=== PATIENT | male | born 1945 | race Caucasian/White ===

== ENCOUNTER 2019-07-03 13:59 | Outpatient (CLI) | payer MEDICARE, SELFPAY ==
--- NOTE | ~2019-07-03 | CT_ITS ---
EXAMINATION: CT abdomen pelvis w con DATE: 07/03/2019 15:01 INDICATION: Abdominal pain TECHNIQUE: Computed tomography (CT) of the abdomen and pelvis was performed with 100 cc Omnipaque 350 intravenous contrast. Automated exposure control and iterative reconstruction technique were employe d. Exam dose: 652.67 mGy-cm total exam DLP. COMPARISON: None. FINDINGS: Approximately 3.5 mm pleura-based nodule in the middle lobe (series 4 image 5). No infiltrate or consolidation or suspicious mass lesion is noted in the lung bases. Normal heart size. No pericardial or pleural effusion. There are calcified hepatic and splenic granulomas consistent with old granulomatous disease. The julien er, gallbladder, bile ducts, pancreas, pancreatic duct and spleen are otherwise unremarkable. Normal morphology of the adrenal glands. 3.2 and 3.9 cm left renal anterior exophytic cysts. The kidneys are otherwise unremarkable. No urinar y tract calculus or hydroureteronephrosis. The urinary bladder is unremarkable. There is moderate pro state enlargement and minimal calcification. There is abdominal aortic calcification and prominent calcification at the origins of the renal arter ies especially. There is a fat containing right inguinal hernia. Minimal sigmoid diverticulosis; no evidence of diverticulitis. No bowel obstruction or intraperitone al free air. Status post posterior and interbody spinal fusion at L3-5. There are degenerative disc disease at L2-3 and L5-S1. Degenerative spurring in the lower thoracic s pine. IMPRESSION: Left renal cysts Minimal sigmoid diverticulosis Reviewed, dictated and finalized at [facility]. Reviewed, dictated and finalized at [facility].
[2019-07-03 14:53] LABS: Estimated Glomerular Filt Rate > 60
== END 2019-07-03 14:00 | disposition home or self-care (01) ==
PROVIDERS: PCP Internal Medicine Gastroenterology; Visit Provider Internal Medicine Gastroenterology
DX: R10.9 Unspecified abdominal pain (principal); N28.1 Cyst of kidney, acquired; K57.90 Diverticulosis of intestine, part unspecified, without perforation or abscess without bleeding
CPT/HCPCS: 36415; 74177; Q9967

== ENCOUNTER 2019-07-08 00:29 | Outpatient (CLI) | payer MEDICARE, SELFPAY ==
[2019-07-08 16:10] LABS: SARS-CoV-2 RNA PCR Negative
== END 2019-07-08 00:30 | disposition home or self-care (01) ==
LOC: ANHCOVIDDT 00:29
PROVIDERS: Visit Provider Internal Medicine Gastroenterology
DX: Z01.818 Encounter for other preprocedural examination (principal); Z11.59 Encounter for screening for other viral diseases; R10.13 Epigastric pain
CPT/HCPCS: 87635; C9803; U0003

== ENCOUNTER 2019-07-09 01:00 | Day surgery (SDC) | payer MEDICARE, SELFPAY ==
[2019-07-04 13:27] VITALS: BMI 27.2
[2019-07-09 07:28] VITALS: BP 138/88; PULSE 80; RESP 16; TEMP 36.6; O2SAT 99
[2019-07-09] MEDS: LACTATED RINGERS 1,000 ML 150 ML IV CONT (07:38)
--- NOTE | 2019-07-09 07:43 | PM.HPGS ---
History of Present Illness History of Present Illness Consent: Risks, benefits, and alternatives have been discussed and questions answered. Patient agrees to proceed with procedure. Chief complaint: Epigastric Pain Narrative: Mani Walton is a 73 year old male with a 2-3 week history of epigastric pain and poor appetite. CT scan the abdomen was unremarkable Meds Home Medications and Allergies Home Medications Medication Instructions Recorded Confirmed Type amlodipine-benazepril 1 cap PO DAILY 07/04/19 07/04/19 History aspirin [Adult Low Dose Aspirin] 81 mg PO DAILY 07/04/19 07/04/19 History multivit with min-folic acid 1 mcg PO DAILY 07/04/19 07/04/19 History [Adult Multivitamin Gummies] Allergies Allergy/AdvReac Type Severity Reaction Status Date / Time celecoxib Allergy Severe Dyspnea / Verified 07/09/19 07:27 SOB Penicillins Allergy Severe Dyspnea / Verified 07/09/19 07:27 SOB Vital Signs Vital Signs - 24 hr 07/09/19 07:28 Temperature 36.6 C Pulse Rate 80 Respiratory Rate 16 Blood Pressure 138/88 Pulse Oximetry 99 Exam Const: General: alert Orientation/consciousness: patient oriented x3 Resp: Auscultation: clear to auscultation bilaterally Cardio: Rhythm: regular rhythm GI: GI Palp: Yes Soft to palpation and No Tenderness to palpation present (GI) Neuro: General: patient oriented x3 Assessment and Plan Assessment and plan (1) Epigastric pain: Code(s): R10.13 - Epigastric pain Status: Acute Assessment and Plan: EGD with possible biopsy or dilatation or cautery.
--- NOTE | 2019-07-09 07:49 | WPDANESEPPF ---
Anes - Initial Pre Proc Eval Procedure: Operation Date: 07/09/19 08:30 Proposed Procedures p Esophagogastroduodenoscopy - Warren Sanchez MD Date/Time: 07/09/19 07:49 Surgeon: Warren Sanchez MD Pre Op Diagnosis: Epigastric Pain Patient Data Age: 73 Gender: M Height: 5 ft 7.5 in Weight: 80.7 kg Last Vital Signs Temp 36.6 C 07/09/19 07:28 Pulse 80 07/09/19 07:28 Resp 16 07/09/19 07:28 BP 138/88 07/09/19 07:28 Pulse Ox 99 07/09/19 07:28 Allergies Allergy/AdvReac Type Severity Reaction Status Date / Time celecoxib Allergy Severe Dyspnea / Verified 07/09/19 07:27 SOB Penicillins Allergy Severe Dyspnea / Verified 07/09/19 07:27 SOB Home Medications Medication Instructions Recorded Confirmed Type amlodipine-benazepril 1 cap PO DAILY 07/04/19 07/04/19 History aspirin [Adult Low Dose Aspirin] 81 mg PO DAILY 07/04/19 07/04/19 History multivit with min-folic acid 1 mcg PO DAILY 07/04/19 07/04/19 History [Adult Multivitamin Gummies] Patient hx anesthesia problems: none Family hx anesthesia problems: none [facility] Past Medical History Medical History (Updated 07/09/19 @ 07:56 by Jose C Aponte MD) Overweight Surgical History Surgical History (Updated 07/09/19 @ 07:55 by Jose C Aponte MD) History of ankle surgery History of lumbar fusion Social History Social History (Updated 07/09/19 @ 07:56 by Jose C Aponte MD) Smoking status: Former smoker Anes - Eval Final PreProcedure Day of Procedure 07/09/19 07:49 Patient weight: overweight Heart: regular rate and rhythm Lungs: clear to auscultation Airway: Mallampati scale class II Neurological: alert and oriented Last oral intake: >/= 8 hours ASA classification: II Emergent: no Anesthetic plan: proceed Anesthesia type and monitoring: general GIVS and standard monitoring Informed Consent: The patient's anesthetic plan and its attendant risks and benefits were discussed with the patient/family/POA. Questions were solicited and answers provided to the satisfaction of the patient/family/POA.
[2019-07-09 08:36] VITALS: BP 110/77; PULSE 80; RESP 30; O2SAT 96
[2019-07-09 08:46] VITALS: BP 107/73; PULSE 75; RESP 13; O2SAT 93
[2019-07-09 08:56] VITALS: BP 114/76; PULSE 74; RESP 16; O2SAT 94
== END 2019-07-09 09:12 | disposition home or self-care (01) ==
PROVIDERS: Visit Provider Internal Medicine Gastroenterology
PROC: 0DJ08ZZ Inspection of Upper Intestinal Tract, Via Natural or Artificial Opening Endoscopic (ICD-10-PCS; CPT 43235; principal; 2019-07-09 08:30)
DX: K22.2 Esophageal obstruction (principal); K29.70 Gastritis, unspecified, without bleeding; K29.80 Duodenitis without bleeding; K20.8 Other esophagitis; Z98.1 Arthrodesis status
CPT/HCPCS: 43239; 43249; 87081; 88305; C1726; J2001; J2704; J7120

== ENCOUNTER 2019-09-11 00:31 | Outpatient (CLI) | payer MEDICARE, SELFPAY ==
[2019-09-11 19:19] LABS: SARS-CoV-2 RNA PCR Negative
== END 2019-09-11 00:32 | disposition home or self-care (01) ==
LOC: ANHCOVIDDT 00:32
PROVIDERS: Visit Provider Internal Medicine Gastroenterology
DX: Z01.812 Encounter for preprocedural laboratory examination (principal); Z11.59 Encounter for screening for other viral diseases
CPT/HCPCS: 87635; C9803; U0003

== ENCOUNTER 2019-09-13 02:01 | Day surgery (SDC) | payer MEDICARE, SELFPAY ==
[2019-09-03 12:37] VITALS: BMI 27.9
[2019-09-13 06:29] VITALS: BP 134/81; PULSE 82; RESP 20; TEMP 36.4; O2SAT 97
[2019-09-13] MEDS: LACTATED RINGERS 1,000 ML 150 ML IV CONT (06:38)
--- NOTE | 2019-09-13 06:55 | P.PNAN_ITS ---
Anes - Initial Pre Proc Eval Procedure: Operation Date: 09/13/19 07:30 Proposed Procedures p Esophagogastroduodenoscopy - Warren Sanchez MD Date/Time: 09/13/19 06:55 Surgeon: Warren Sanchez MD Pre Op Diagnosis: stricture Patient Data Age: 73 Gender: M Height: 1.7 m Weight: 81.2 kg Last Vital Signs Temp 36.4 C 09/13/19 06:29 Pulse 82 09/13/19 06:29 Resp 20 09/13/19 06:29 BP 134/81 09/13/19 06:29 Pulse Ox 97 09/13/19 06:29 Allergies Allergy/AdvReac Type Severity Reaction Status Date / Time celecoxib Allergy Severe Dyspnea / Verified 09/13/19 06:27 SOB Penicillins Allergy Severe Dyspnea / Verified 09/13/19 06:27 SOB Home Medications Medication Instructions Recorded Confirmed Type Adult Multivitamin Gummies 1 mcg PO DAILY 07/04/19 09/03/19 History amlodipine-benazepril 1 cap PO DAILY 07/04/19 09/03/19 History aspirin [Adult Low Dose Aspirin] 81 mg PO DAILY 07/04/19 09/03/19 History Patient hx anesthesia problems: none Family hx anesthesia problems: none [facility] Past Medical History Medical History (Updated 09/13/19 @ 06:56 by Cory Juárez MD) Arthritis HTN (hypertension) Overweight Surgical History Surgical History (Updated 07/09/19 @ 07:55 by Jose C Aponte MD) History of ankle surgery History of lumbar fusion Social History Social History (Updated 07/09/19 @ 07:56 by Jose C Aponte MD) Smoking status: Former smoker Gender identity (if verbalized by the patient): Male Anes - Eval Final PreProcedure Day of Procedure 09/13/19 06:55 Patient weight: overweight Heart: regular rate and rhythm Lungs: clear to auscultation and normal air movement Airway: Mallampati scale class II Neurological: alert and oriented Last oral intake: >/= 8 hours ASA classification: II Emergent: no Anesthetic plan: proceed Anesthesia type and monitoring: general GIVS Informed Consent: The patient's anesthetic plan and its attendant risks and benefits were discussed with the patient/family/POA. Questions were solicited and answers provided to the satisfaction of the patient/family/POA.
--- NOTE | 2019-09-13 07:24 | PM.HPGS ---
History of Present Illness History of Present Illness Consent: Risks, benefits, and alternatives have been discussed and questions answered. Patient agrees to proceed with procedure. Chief complaint: stricture Narrative: Mani Walton is a 73 year old male Dysphagia. He was recently found to have a very high-grade stricture of the esophagus that could be only dilated up to 12 mm. Now after taking omeprazole for 2 months he is doing better and returns for further treatment PMFSH Past Medical History Medical History Arthritis HTN (hypertension) Overweight Surgical History Surgical History History of ankle surgery History of lumbar fusion Social History Social History Smoking status: Former smoker Gender identity (if verbalized by the patient): Male Meds Home Medications and Allergies Home Medications Medication Instructions Recorded Confirmed Type Adult Multivitamin Gummies 1 mcg PO DAILY 07/04/19 09/03/19 History amlodipine-benazepril 1 cap PO DAILY 07/04/19 09/03/19 History aspirin [Adult Low Dose Aspirin] 81 mg PO DAILY 07/04/19 09/03/19 History Allergies Allergy/AdvReac Type Severity Reaction Status Date / Time celecoxib Allergy Severe Dyspnea / Verified 09/13/19 06:27 SOB Penicillins Allergy Severe Dyspnea / Verified 09/13/19 06:27 SOB Vital Signs Vital Signs - 24 hr 09/13/19 06:29 Temperature 36.4 C Pulse Rate 82 Respiratory Rate 20 Blood Pressure 134/81 Pulse Oximetry 97 Exam Const: General: alert Orientation/consciousness: patient oriented x3 Resp: Auscultation: clear to auscultation bilaterally Cardio: Rhythm: regular rhythm GI: GI Palp: Yes Soft to palpation and No Tenderness to palpation present (GI) Neuro: General: patient oriented x3 Assessment and Plan Assessment and plan (1) Dysphagia: Code(s): R13.10 - Dysphagia, unspecified Status: Acute Assessment and Plan: EGD with possible biopsy or dilatation or cautery.
[2019-09-13 07:44] VITALS: BP 81/41; PULSE 73; RESP 16; O2SAT 95
[2019-09-13 07:54] VITALS: BP 80/42; PULSE 72; RESP 16; O2SAT 94
[2019-09-13 08:04] VITALS: BP 96/59; PULSE 63; RESP 16; O2SAT 96
== END 2019-09-13 08:20 | disposition home or self-care (01) ==
PROVIDERS: Visit Provider Internal Medicine Gastroenterology
PROC: 0DJ08ZZ Inspection of Upper Intestinal Tract, Via Natural or Artificial Opening Endoscopic (ICD-10-PCS; CPT 43235; principal; 2019-09-13 07:30)
DX: K22.2 Esophageal obstruction (principal); K21.0 Gastro-esophageal reflux disease with esophagitis; I10 Essential (primary) hypertension; Z79.82 Long term (current) use of aspirin; Z87.891 Personal history of nicotine dependence
CPT/HCPCS: 43249; C1726; J2704; J7120

== ENCOUNTER 2019-10-16 07:27 | Outpatient (CLI) | payer MEDICARE, SELFPAY ==
--- NOTE | ~2019-10-16 | MR_ITS ---
EXAMINATION: MR shoulder RT wo con DATE: 10/16/2019 08:42 INDICATION: Right shoulder pain. TECHNIQUE: Magnetic resonance imaging (MRI) of the right shoulder was performed without intravenous c ontrast. Sequences included axial PD-weighted FS FSE, coronal oblique PD-weighted FS FSE, coronal obl ique T2-weighted FS FSE, sagittal PD-weighted FS FSE, and sagittal T1-weighted SE. COMPARISON: None. FINDINGS: Moderate motion artifact on the axial sequence with mild motion artifact or blurring on the remaining sequences. Coracoacromial arch: The acromion undersurface is curved in morphology (type II). The coracoacromial ligament is normal. M oderate acromioclavicular osteoarthritis. Rotator cuff: Moderate tendinopathy of the subscapularis, supraspinatus and infraspinatus tendons. There is a small full-thickness tear at the superior facet footplate of the posterior supraspinatus tendon measuring 10 mm AP and 1.2 cm medial to lateral. The teres minor tendon is normal. Normal rotator cuff muscle b ulk and signal. Biceps tendon, glenoid labrum and glenohumeral cartilage: Evaluation of the labrum and cartilage is significantly limited by motion. There is partial tear of t he biceps labral complex at the anterosuperior aspect of the glenoid with mild tendinopathy and longi tudinal split tearing of the long head biceps tendon at its insertion with the tear extending into th e 1:00 position of the superior labrum. The remainder of the more distal long head biceps tendon is n ormal. There is underlying cystic change at the superior glenoid. There is amorphous increased signal at the anterior labrum suspicious for additional degenerative tearing. There is partial thickness ca rtilage loss with chondral surface irregularity at the inferior third of the glenoid and at the super omedial aspect of the humeral head. There is additional subarticular cystic change along the inferior glenoid. Fluid: Small glenohumeral joint effusion with extension of fluid through the full-thickness rotator cuff tea r to communicate with additional small amount of fluid in the subacromial/subdeltoid bursa. No loose osteochondral bodies. Bones: There is additional mild cystic change along the greater tuberosity and more prominent cystic change at the lesser tuberosity. No fracture or pathologic marrow replacing process. IMPRESSION: 1. Evaluation of the labrum and cartilage is moderately limited by motion. 2. Moderate rotator cuff tendinopathy with small full-thickness tear at the insertion of the posterio r supraspinatus tendon. 3. 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 4. Tear of the biceps labral complex including tendinopathy and longitudinal split tearing of the joel g head biceps tendon at its insertion which extends into the superior to anterosuperior labrum. Reviewed, dictated and finalized at [facility]. IMPRESSION: 1. Evaluation of the labrum and cartilage is moderately limited by motion. 2. Moderate rotator cuff tendinopathy with small full-thickness tear at the ins ertion of the posterior supraspinatus tendon. 3. Glenohumeral osteoarthritis with moderate grade chondral malacia the humeral head and moderate to high-grade chondromalacia the glenoid with subarticular c ystic changes at the superior and inferior glenoid. 4. Tear of the biceps labral complex including tendinopathy and longitudinal sp lit tearing of the long head biceps tendon at its insertion which extends into the superior to anterosuperior labrum.
== END 2019-10-16 07:28 | disposition home or self-care (01) ==
DX: M25.511 Pain in right shoulder (principal); M75.81 Other shoulder lesions, right shoulder; S46.811A Strain of other muscles, fascia and tendons at shoulder and upper arm level, right arm, initial encounter; M19.011 Primary osteoarthritis, right shoulder; M94.211 Chondromalacia, right shoulder; S46.211A Strain of muscle, fascia and tendon of other parts of biceps, right arm, initial encounter
CPT/HCPCS: 73221

== ENCOUNTER 2021-06-10 02:06 | Day surgery (SDC) | payer MEDICARE, SELFPAY ==
[2021-05-27 13:54] VITALS: BMI 27.6
--- NOTE | 2021-06-09 14:39 | P.HP_ITS ---
History of Present Illness History of Present Illness Consent: Risks, benefits, and alternatives have been discussed and questions answered. Patient agrees to proceed with procedure. Chief complaint: esophageal stricture Narrative: Mani Walton is a 75 year old male who was found to have a high- grade stricture of the esophagus nearly 2 years ago. At that time was able to dilate the stricture up to 15 mm, but that was 2 months after his initial treatment at which time we could only get up to 12 mm.. He Was advised to return for repeat procedure and further dilatation a few months later but somehow that never happened. He is now having dysphagia for solid food again . He states that he did well until about 6 months ago. He states that his symptoms he had in minutes. He will do fine for several weeks and then have an episode of dysphagia. Drinking cold liquids seems to also be a factor. Review of Systems Review of Systems: All systems reviewed & are unremarkable except as noted in HPI and below PMFSH Past Medical History Medical History Arthritis HTN (hypertension) Overweight Surgical History Surgical History History of ankle surgery History of lumbar fusion Social History Social History Smoking packs per day: 1 Smoking cigarettes per day: 20.0 Smoking status: Former smoker Tobacco type: cigarettes Alcohol intake: current Drinks per week: 2 Alcohol use details: occasional beer Substance use: never Substance use type: does not use Living arrangements: with family Gender identity (if verbalized by the patient): Male Spiritual care concerns: No Meds Home Medications and Allergies Home Medications Medication Instructions Recorded Confirmed Type Adult Multivitamin Gummies 1 mcg PO DAILY 07/04/19 06/10/21 History amlodipine-benazepril 1 cap PO DAILY 07/04/19 06/10/21 History aspirin [Adult Low Dose Aspirin] 81 mg PO DAILY 07/04/19 06/10/21 History Allergies Allergy/AdvReac Type Severity Reaction Status Date / Time celecoxib Allergy Severe Dyspnea / Verified 06/10/21 06:17 SOB Penicillins Allergy Severe Dyspnea / Verified 06/10/21 06:17 SOB Exam Const: General: alert Orientation/consciousness: patient oriented x3 Resp: Auscultation: clear to auscultation bilaterally Cardio: Rhythm: regular rhythm GI: GI Palp: Yes Soft to palpation and No Tenderness to palpation present (GI) Neuro: General: patient oriented x3 Assessment and Plan Assessment and plan (1) Dysphagia: Code(s): R13.10 - Dysphagia, unspecified Status: Acute Assessment and Plan: EGD with possible biopsy or dilatation or cautery.
[2021-06-10 06:19] VITALS: BP 155/88; PULSE 80; RESP 16; TEMP 36.2; O2SAT 98; BMI 25.9
[2021-06-10] MEDS: LACTATED RINGERS 1,000 ML 150 ML IV CONT (06:28)
--- NOTE | 2021-06-10 06:35 | WPDANESEPPF ---
Anes - Initial Pre Proc Eval Procedure: Operation Date: 06/10/21 07:30 Proposed Procedures p Esophagogastroduodenoscopy - Warren Sanchez MD Date/Time: 06/10/21 06:35 Surgeon: Warren Sanchez MD Pre Op Diagnosis: esophageal stricture Patient Data Age: 75 Gender: M Height: 1.7 m Weight: 75.1 kg Last Vital Signs Temp 36.2 C L 06/10/21 06:19 Pulse 80 06/10/21 06:19 Resp 16 06/10/21 06:19 BP 155/88 H 06/10/21 06:19 Pulse Ox 98 06/10/21 06:19 Allergies Allergy/AdvReac Type Severity Reaction Status Date / Time celecoxib Allergy Severe Dyspnea / Verified 06/10/21 06:17 SOB Penicillins Allergy Severe Dyspnea / Verified 06/10/21 06:17 SOB Home Medications Medication Instructions Recorded Confirmed Type Adult Multivitamin Gummies 1 mcg PO DAILY 07/04/19 06/10/21 History amlodipine-benazepril 1 cap PO DAILY 07/04/19 06/10/21 History aspirin [Adult Low Dose Aspirin] 81 mg PO DAILY 07/04/19 06/10/21 History Patient hx anesthesia problems: none Family hx anesthesia problems: none Results Review: All pre-operative results and documents have been reviewed as part of the pre-operative evaluation. [facility] Past Medical History Medical History Arthritis HTN (hypertension) Overweight Surgical History Surgical History History of ankle surgery History of lumbar fusion Social History Social History Smoking packs per day: 1 Smoking cigarettes per day: 20.0 Smoking status: Former smoker Tobacco type: cigarettes Alcohol intake: current Drinks per week: 2 Alcohol use details: occasional beer Substance use: never Substance use type: does not use Living arrangements: with family Gender identity (if verbalized by the patient): Male Spiritual care concerns: No Anes - Eval Final PreProcedure Day of Procedure 06/10/21 06:35 Patient weight: overweight Heart: regular rate and rhythm Lungs: decreased breath sounds Airway: Mallampati scale class II Neurological: alert and oriented Last oral intake: >/= 8 hours ASA classification: II Emergent: no Anesthetic plan: proceed Anesthesia type and monitoring: general GIVS and standard monitoring Results Review: All pre-operative results and documents have been reviewed as part of the pre-operative evaluation. Informed Consent: The patient's anesthetic plan and its attendant risks and benefits were discussed with the patient/family/POA. Questions were solicited and answers provided to the satisfaction of the patient/family/POA.
[2021-06-10 07:39] VITALS: BP 99/62; PULSE 75; RESP 24; O2SAT 94
[2021-06-10 07:49] VITALS: BP 120/77; PULSE 74; RESP 24; O2SAT 94
[2021-06-10 07:59] VITALS: BP 129/85; PULSE 71; RESP 17; O2SAT 95
== END 2021-06-10 08:10 | disposition home or self-care (01) ==
PROVIDERS: Visit Provider Internal Medicine Gastroenterology
PROC: 0DJ08ZZ Inspection of Upper Intestinal Tract, Via Natural or Artificial Opening Endoscopic (ICD-10-PCS; CPT 43235; principal; 2021-06-10 07:30)
DX: K22.2 Esophageal obstruction (principal); K21.00 Gastro-esophageal reflux disease with esophagitis, without bleeding; I10 Essential (primary) hypertension; Z79.82 Long term (current) use of aspirin; Z98.1 Arthrodesis status; Z87.891 Personal history of nicotine dependence
CPT/HCPCS: 43249; 88305; C1726; J2704; J7120

== ENCOUNTER 2021-08-04 01:37 | Day surgery (SDC) | payer MEDICARE, SELFPAY ==
--- NOTE | 2021-06-28 10:14 | SUR.PREOP ---
06/28/2021 [facility] unable to reach pt in regards to their colon prep. I tried calling the patient and left a voicemail on both his cell and home number. I was able to reach his Charu Olea and left both my number and [facility]'s number to have the patient call to discuss his colon prep.
--- NOTE | 2021-07-05 08:17 | SUR.PREOP ---
07/05/2021 Spoke with Mani via phone regarding his prep and [facility]. Pt stated he received a notice that the prep is being shipped and on his way.
[2021-07-19 09:24] VITALS: BMI 25.9
--- NOTE | 2021-08-03 15:33 | PM.HPGS ---
History of Present Illness History of Present Illness Consent: Risks, benefits, and alternatives have been discussed and questions answered. Patient agrees to proceed with procedure. Chief complaint: dysphagia, hx of colon polyps Narrative: Mani Walton is a 75 year old male who has dysphagia and a couple of months ago also found to have a high-grade stricture of the distal esophagus associated with reflux esophagitis and inflammation that could only be dilated up to 11 mm. He is also due for colon cancer screening, having had multiple polyps removed about 3 years ago. Review of Systems Review of Systems: All systems reviewed & are unremarkable except as noted in HPI and below PMFSH Past Medical History Medical History Arthritis HTN (hypertension) Overweight Surgical History Surgical History History of ankle surgery History of lumbar fusion Social History Social History Smoking packs per day: 1 Smoking cigarettes per day: 20.0 Smoking status: Former smoker Tobacco type: cigarettes Alcohol intake: current Drinks per week: 2 Alcohol use details: occasional beer Substance use: never Substance use type: does not use Living arrangements: with family Gender identity (if verbalized by the patient): Male Spiritual care concerns: No Meds Home Medications and Allergies Home Medications Medication Instructions Recorded Confirmed Type amlodipine 5 mg-benazepril 10 mg 1 cap PO DAILY 07/04/19 08/04/21 History capsule aspirin 81 mg tablet,delayed 81 mg PO DAILY 07/04/19 08/04/21 History release (Adult Low Dose Aspirin) multivitamin with minerals-folic 1 mcg PO DAILY 07/04/19 08/04/21 History acid 200 mcg chewable tablet (Adult Multivitamin Gummies) pantoprazole 40 mg tablet,delayed 40 mg PO QAM #30 tabs 06/10/21 08/04/21 Rx release Allergies Allergy/AdvReac Type Severity Reaction Status Date / Time celecoxib Allergy Severe Dyspnea / Verified 08/04/21 06:18 SOB Penicillins Allergy Severe Dyspnea / Verified 08/04/21 06:18 SOB Exam Const: General: alert Orientation/consciousness: patient oriented x3 Resp: Auscultation: clear to auscultation bilaterally Cardio: Rhythm: regular rhythm GI: GI Palp: Yes Soft to palpation and No Tenderness to palpation present (GI) Neuro: General: patient oriented x3 Assessment and Plan Assessment and plan (1) Dysphagia: Code(s): R13.10 - Dysphagia, unspecified Status: Acute Assessment and Plan: EGD with possible biopsy or dilatation or cautery. (2) Colon cancer screening: Code(s): Z12.11 - Encounter for screening for malignant neoplasm of colon Status: Acute Assessment and Plan: Colonoscopy with possible biopsy or polypectomy or cautery or injection of substances.
[2021-08-04 06:20] VITALS: BP 147/78; PULSE 73; RESP 16; TEMP 36.3; O2SAT 97; BMI 26.4
[2021-08-04] MEDS: LACTATED RINGERS 1,000 ML 150 ML IV CONT (06:31)
--- NOTE | 2021-08-04 07:11 | WPDANESEPPF ---
Anes - Initial Pre Proc Eval Procedure: Operation Date: 08/04/21 07:30 Proposed Procedures p Esophagogastroduodenoscopy & Screening Colonoscopy - Warren Sanchez MD Date/Time: 08/04/21 07:11 Surgeon: Warren Sanchez MD Pre Op Diagnosis: dysphagia, hx of colon polyps Patient Data Age: 75 Gender: M Height: 1.7 m Weight: 76.4 kg Last Vital Signs Temp 36.3 C L 08/04/21 06:20 Pulse 73 08/04/21 06:20 Resp 16 08/04/21 06:20 BP 147/78 H 08/04/21 06:20 Pulse Ox 97 08/04/21 06:20 O2 Del Method Room Air 08/04/21 06:20 Allergies Allergy/AdvReac Type Severity Reaction Status Date / Time celecoxib Allergy Severe Dyspnea / Verified 08/04/21 06:18 SOB Penicillins Allergy Severe Dyspnea / Verified 08/04/21 06:18 SOB Home Medications Medication Instructions Recorded Confirmed Type amlodipine 5 mg-benazepril 10 mg 1 cap PO DAILY 07/04/19 08/04/21 History capsule aspirin 81 mg tablet,delayed 81 mg PO DAILY 07/04/19 08/04/21 History release (Adult Low Dose Aspirin) multivitamin with minerals-folic 1 mcg PO DAILY 07/04/19 08/04/21 History acid 200 mcg chewable tablet (Adult Multivitamin Gummies) pantoprazole 40 mg tablet,delayed 40 mg PO QAM #30 tabs 06/10/21 08/04/21 Rx release Patient hx anesthesia problems: none Family hx anesthesia problems: none Results Review: All pre-operative results and documents have been reviewed as part of the pre-operative evaluation. [facility] Past Medical History Medical History (Updated 08/03/21 @ 15:34 by Warren Sanchez MD) Arthritis HTN (hypertension) Overweight Surgical History Surgical History History of ankle surgery History of lumbar fusion Social History Social History Smoking packs per day: 1 Smoking cigarettes per day: 20.0 Smoking status: Former smoker Tobacco type: cigarettes Alcohol intake: current Drinks per week: 2 Alcohol use details: occasional beer Substance use: never Substance use type: does not use Living arrangements: with family Gender identity (if verbalized by the patient): Male Spiritual care concerns: No Anes - Eval Final PreProcedure Day of Procedure 08/04/21 07:11 Patient weight: overweight Heart: regular rate and rhythm Lungs: decreased breath sounds Airway: Mallampati scale class II Neurological: alert and oriented Last oral intake: >/= 8 hours ASA classification: II Emergent: no Anesthetic plan: proceed Anesthesia type and monitoring: general GIVS and standard monitoring Results Review: All pre-operative results and documents have been reviewed as part of the pre-operative evaluation. Informed Consent: The patient's anesthetic plan and its attendant risks and benefits were discussed with the patient/family/POA. Questions were solicited and answers provided to the satisfaction of the patient/family/POA.
--- NOTE | 2021-08-04 07:51 | SUR.OPER ---
EGD END TIME: 739 COLONOSCOPY START AT 745
[2021-08-04] MEDS: SIMETHICONE ORAL SUSPENSION 20 MG/0.3 ML 30 ML BOTTLE 0.6 ML IRRIGATION (07:53)
[2021-08-04 08:02] VITALS: BP 113/79; PULSE 71; RESP 19; O2SAT 98
[2021-08-04 08:12] VITALS: BP 132/87; PULSE 67; RESP 22; O2SAT 97
[2021-08-04 08:22] VITALS: BP 138/86; PULSE 67; RESP 17; O2SAT 97
== END 2021-08-04 08:31 | disposition home or self-care (01) ==
PROVIDERS: Visit Provider Internal Medicine Gastroenterology
PROC: 0DJ08ZZ Inspection of Upper Intestinal Tract, Via Natural or Artificial Opening Endoscopic (ICD-10-PCS; CPT 43235; principal; 2021-08-04 07:30)
DX: Z12.11 Encounter for screening for malignant neoplasm of colon (principal); K57.30 Diverticulosis of large intestine without perforation or abscess without bleeding; D12.2 Benign neoplasm of ascending colon; K22.2 Esophageal obstruction; K29.70 Gastritis, unspecified, without bleeding; I10 Essential (primary) hypertension; Z79.82 Long term (current) use of aspirin; Z87.891 Personal history of nicotine dependence
CPT/HCPCS: 45385; 43249; 88305; C1726; J2704; J7120

== ENCOUNTER 2022-03-26 11:10 | Emergency (ER) | payer MEDICARE, SELFPAY ==
[2022-03-26] VITALS (21 sets, daily range): BP systolic 99–154; BP diastolic 58–108; PULSE 90–114; RESP 10–22; TEMP 36.2–37.4; O2SAT 93–98
--- NOTE | ~2022-03-26 | CT_ITS ---
EXAMINATION: CT abdomen pelvis w con DATE: 03/26/2022 13:55 INDICATION: abd pain TECHNIQUE: Computed tomography (CT) of the abdomen and pelvis was performed with 100 mL Omnipaque-350 intravenous contrast. Automated exposure control and iterative reconstruction technique were employe d. The dose-length product was 587.60 mGy-cm. COMPARISON: 07/03/2019. FINDINGS: Lower thorax: Stable peripheral left lower lobe and right middle lobe granulomas. Liver: Granulomatous calcification. Biliary/Gallbladder: Gallbladder is normal. No bile duct dilation. Pancreas: No mass or duct dilation. Spleen: Granulomas calcification. Adrenals:No mass. Kidneys: Bilateral perinephric stranding. Exophytic simple left renal cysts. Simple right upper pole cyst. No suspicious mass, hydronephrosis, or obstructing calculus. GI tract: Mild distal esophageal and gastric wall edema. No small or large bowel dilation. Appendix n ot visualized . Mild diverticulosis, without diverticulitis. Uniform bowel wall enhancement. Mesentery/Peritoneum: No ascites, mass, or free air. Retroperitoneum: No mass. Atherosclerotic abdominal aortic and/or arterial calcifications. Pelvis: Mild bladder wall thickening in a partially distended urinary bladder, likely secondary to ou tlet compromise from prostatomegaly.. Soft Tissues: Uncomplicated fat-containing small right inguinal hernia Bones: No acute osseous finding. Uncomplicated posterior lumbar fusion. IMPRESSION: No acute abdominopelvic process detected. Reviewed, dictated and finalized at location K. OGICAL TECHNICIAN
--- NOTE | 2022-03-26 11:54 | ED.GENADULT ---
HPI - General Adult General Chief complaint: Abdominal Pain Stated complaint: Abd pain, diarrhea Time Seen by Provider: 03/26/22 11:33 Source: patient and RN notes reviewed History of Present Illness HPI narrative: Patient presents emergency department from home for abdominal pain. Patient states symptoms began yesterday with abdominal pain described as cramping in the lower abdomen. States is bilaterally in the lower abdomen does not radiate. States he had diarrhea yesterday with numerous episodes of diarrhea also has he had nausea and vomiting yesterday with another episode this morning he states he has had no fevers or chills he denies any chest pain shortness of breath or any other symptoms states he has not taken any Tylenol or ibuprofen today Related Data Home Medications Medication Instructions Recorded Confirmed amlodipine 5 mg-benazepril 10 mg 1 cap PO DAILY 07/04/19 08/04/21 capsule aspirin 81 mg tablet,delayed 81 mg PO DAILY 07/04/19 08/04/21 release (Adult Low Dose Aspirin) multivitamin with minerals-folic 1 mcg PO DAILY 07/04/19 08/04/21 acid 200 mcg chewable tablet (Adult Multivitamin Gummies) Allergies Allergy/AdvReac Type Severity Reaction Status Date / Time celecoxib Allergy Severe Dyspnea / Verified 08/04/21 06:18 SOB Penicillins Allergy Severe Dyspnea / Verified 08/04/21 06:18 SOB Review of Systems Review of Systems: Gen.: Denies fevers or chills ENT: Denies congestion Respiratory: Denies shortness of breath or cough CV: Denies chest pain or palpitations GI: See HPI Musculoskeletal: Denies back pain or muscle pain Neuro: Denies numbness, tingling, weakness or focal weakness Skin: Denies rash Except as documented, all other systems reviewed and negative [facility] Past Medical History Medical History (Updated 03/26/22 @ 16:28 by Rob Leos DO) Arthritis HTN (hypertension) Overweight Surgical History Surgical History History of ankle surgery History of lumbar fusion Social History Social History Smoking packs per day: 1 Smoking cigarettes per day: 20.0 Smoking status: Former smoker Tobacco type: cigarettes Alcohol intake: current Drinks per week: 2 Alcohol use details: occasional beer Substance use: never Substance use type: does not use Living arrangements: with family Gender identity (if verbalized by the patient): Male Spiritual care concerns: No Exam Narrative: APPEARANCE: No acute distress, nontoxic, resting in bed HEENT: Normocephalic, atraumatic, OMM RESPIRATORY: No respiratory distress, clear to auscultation bilaterally with no rhonchi wheezing or rales CARDIOVASCULAR: RRR s murmur ABDOMINAL: Soft nondistended tender to palpation in the right lower quadrant in the left lower quadrant no tenderness in the right upper quadrant in the left upper quadrant no rebound or guarding MUSCULOSKELETAl: Moves all extremities. No clubbing, cyanosis or edema. NEURO: Awake and alert. Following commands, speech normal, no focal deficits SKIN:: Warm, dry. Normal Color PSYCHIATRIC: Normal affect/mood Course Course Emergency Course: Patient given GI cocktail in ED with resolution of abdominal pain Patient states that they are feeling much better at this time. States abdominal pain has resolved. Repeat abdominal exam shows the patient's abdomen to be soft and nontender. Discussed with patient results of workup and diagnosis. Discussed need for follow-up with primary care physician, reasons to return to the emergency department in proper use of medication. Patient understands and agrees to current treatment plan Vital Signs Vital signs: Vital Signs Temperature 97.2 F L 03/26/22 11:28 Pulse Rate 110 H 03/26/22 11:28 Respiratory Rate 20 03/26/22 11:28 Blood Pressure 99/58 L 03/26/22 11:28 Pulse Oximetry 95 03/26/22 11:28
[2022-03-26 12:07] LABS: Basophils Percent Auto 0.2 % (0.2-1.2); Hemoglobin 17.1 g/dL (14.0-18.0); Immature Granulocyte Absolute 0.06 K/mm3 (0.00-0.031); Immature Granulocyte Percent A 0.5 % (0-0.5); Lymphocytes Absolute Auto 0.26 K/mm3 (0.9-3.2); Lymphocytes Percent Auto 2.4 % (18.3-44.2); Mean Corpuscular HGB Conc 34.2 g/dl (32-36); Mean Corpuscular Hemoglobin 31.5 pg (26-34); Mean Corpuscular Volume 92.3 fl (80-100); Mean Platelet Volume 10.5 fl (7.4-10.4); Monocytes Absolute Auto 0.4 K/mm3 (0.1-0.6); Monocytes Percent Auto 3.5 % (2.6-8.5); Neutrophils Absolute Auto 10.3 K/mm3 (1.3-6.7); Neutrophils Percent Auto 93.4 % (45.5-73.1); Platelet Count Result 200 k/mm3 (150-375); Red Blood Count 5.42 M/mm3 (4.6-6.20); Red Cell Distribution Width 13.2 % (11.5-14.5)
[2022-03-26] MEDS: SODIUM CHLORIDE 0.9% IV 1,000 ML 999 ML IV CONT (12:08)
--- NOTE | 2022-03-26 12:12 | PC.NURSE ---
Patient states he is unable to urinate. Urinal placed at bedside.
[2022-03-26 12:20] LABS: Alanine Aminotransferase 27 U/L (6-50); Albumin Level 4.8 g/dL (3.5-5.1); Alkaline Phosphatase 83 U/L (38-126); Anion Gap 8 mmol/L (8-16); Aspartate Amino Transferase 21 U/L (17-59); Bilirubin,Total 1.7 mg/dL (0.2-1.3); Blood Urea Nitrogen 24 mg/dL (9-20); Calcium 9.3 mg/dL (8.4-10.2); Carbon Dioxide 25 mmol/L (22-30); Chloride 106 mmol/L (98-107); Estimated CRCL calculation 56 ml/min; Estimated Glomerular Filt Rate > 60; Glucose 152 mg/dL (65-110); Lactic Acid Reflex 1.5 mmol/L (0.7-2.0); Lipase 35 U/L (23-300); Potassium 4.2 mmol/L (3.4-5.0); Sodium 139 mmol/L (137-145)
[2022-03-26 13:07] LABS: Influenza A QL RT-PCR Negative (Negative); Influenza B QL RT-PCR Negative (Negative); SARS-CoV-2 RNA PCR Negative
[2022-03-26 13:26] LABS: Appearance Urine Clear (Clear); Bilirubin Urine 2+ (Negative); Blood Urine Trace-intact (Negative); Color Urine Yellow (Yellow); Glucose Urine UA Negative (Negative); Ketones Urine 1+ mg/dL (Negative); Leukocyte Esterase Ur Negative LEU/UL (Negative); Nitrate Urine Negative (Negative); Protein Urine 2+ mg/dL (Negative); Specific Grav Ur >= 1.030 (1.001-1.035); Urobilinogen Urine 0.2 mg/dL (<2.0); pH Urine 5.5 (5.0-9.0)
[2022-03-26 13:31] LABS: Amorphous Sediment Urine Few; Mucus Urine Heavy /lpf; Squamous Epithelial Cell Urine Occasional /hpf (Few)
[2022-03-26 13:32] LABS: Add Urine Microscopic? YES
[2022-03-26] MEDS: MORPHINE SULFATE (*CRX) 2 MG/ML INJ IV PUSH (13:40)
== END 2022-03-26 16:50 | disposition home or self-care (01) ==
PROVIDERS: Emergency Provider Emergency Medicine
DX: R10.32 Left lower quadrant pain (principal); R10.31 Right lower quadrant pain; R19.7 Diarrhea, unspecified; R11.2 Nausea with vomiting, unspecified; Z20.822 Contact with and (suspected) exposure to COVID-19; I10 Essential (primary) hypertension; M19.90 Unspecified osteoarthritis, unspecified site; E66.3 Overweight; Z68.27 Body mass index [BMI] 27.0-27.9, adult; Z98.1 Arthrodesis status; Z87.891 Personal history of nicotine dependence; Z79.82 Long term (current) use of aspirin
CPT/HCPCS: 36415; 74177; 80053; 81001; 83605; 83690; 85025; 87636; 96361; 96374; 96375; 99284; A9270; J0131; J2270; J7030; Q9967

== ENCOUNTER 2022-10-20 06:01 | Day surgery (SDC) | payer MEDICARE, SELFPAY ==
[2022-08-05 11:36] VITALS: BMI 27.9
--- NOTE | 2022-10-19 11:12 | PM.HPGS ---
History of Present Illness History of Present Illness Consent: Risks, benefits, and alternatives have been discussed and questions answered. Patient agrees to proceed with procedure. Chief complaint: Stricture Narrative: Mani Walton is a 76 year old male With a known chronic benign esophageal stricture. He has had several endoscopic treatments over the past 3 years. Last year I was able dilate it up to 13.5 mm. He is having dysphagia again. Review of Systems Review of Systems: All systems reviewed & are unremarkable except as noted in HPI and below PMFSH Past Medical History Medical History Arthritis HTN (hypertension) Overweight Surgical History Surgical History History of ankle surgery History of lumbar fusion Social History Social History Smoking packs per day: 1 Smoking cigarettes per day: 20.0 Smoking status: Former smoker Tobacco type: cigarettes Alcohol intake: current Drinks per week: 2 Alcohol use details: occasional beer Substance use: never Substance use type: does not use Living arrangements: with family Additional living arrangements comments: ethan Gender identity (if verbalized by the patient): Male Spiritual care concerns: No Meds Home Medications and Allergies Home Medications Medication Instructions Recorded Confirmed Type amlodipine 5 mg-benazepril 10 mg 1 cap PO DAILY 07/04/19 10/04/22 History capsule aspirin 81 mg tablet,delayed 81 mg PO DAILY 07/04/19 10/04/22 History release (Adult Low Dose Aspirin) multivitamin with minerals-folic 1 mcg PO DAILY 07/04/19 10/04/22 History acid 200 mcg chewable tablet (Adult Multivitamin Gummies) ascorbate calcium (vitamin C) 1 tablet PO DAILY 10/04/22 10/04/22 History diazepam 5 mg tablet 5 mg PO HS 10/04/22 10/04/22 History Allergies Allergy/AdvReac Type Severity Reaction Status Date / Time celecoxib Allergy Severe Dyspnea / Verified 10/20/22 06:15 SOB Penicillins Allergy Severe Dyspnea / Verified 10/20/22 06:15 SOB Exam Const: General: alert Orientation/consciousness: patient oriented x3 Resp: Auscultation: clear to auscultation bilaterally Cardio: Rhythm: regular rhythm GI: GI Palp: Yes Soft to palpation and No Tenderness to palpation present (GI) Neuro: General: patient oriented x3 Assessment and Plan Assessment and plan (1) Dysphagia: Code(s): R13.10 - Dysphagia, unspecified Status: Acute Assessment and Plan: EGD with possible biopsy or dilatation or cautery.
--- NOTE | 2022-10-20 07:03 | P.PNAN_ITS ---
Anes - Initial Pre Proc Eval Procedure: Operation Date: 10/20/22 07:30 Proposed Procedures p Esophagogastroduodenoscopy - Warren Sanchez MD Date/Time: 10/20/22 07:03 Surgeon: Warren Sanchez MD Pre Op Diagnosis: Stricture Patient Data Age: 76 Gender: M Height: 1.7 m Weight: 79.5 kg Allergies Allergy/AdvReac Type Severity Reaction Status Date / Time celecoxib Allergy Severe Dyspnea / Verified 10/20/22 06:15 SOB Penicillins Allergy Severe Dyspnea / Verified 10/20/22 06:15 SOB Home Medications Medication Instructions Recorded Confirmed Type amlodipine 5 mg-benazepril 10 mg 1 cap PO DAILY 07/04/19 10/04/22 History capsule aspirin 81 mg tablet,delayed 81 mg PO DAILY 07/04/19 10/04/22 History release (Adult Low Dose Aspirin) multivitamin with minerals-folic 1 mcg PO DAILY 07/04/19 10/04/22 History acid 200 mcg chewable tablet (Adult Multivitamin Gummies) ascorbate calcium (vitamin C) 1 tablet PO DAILY 10/04/22 10/04/22 History diazepam 5 mg tablet 5 mg PO HS 10/04/22 10/04/22 History Patient hx anesthesia problems: none Family hx anesthesia problems: none Results Review: All pre-operative results and documents have been reviewed as part of the pre- operative evaluation. [facility] Past Medical History Medical History Arthritis HTN (hypertension) Overweight Surgical History Surgical History History of ankle surgery History of lumbar fusion Social History Social History Smoking packs per day: 1 Smoking cigarettes per day: 20.0 Smoking status: Former smoker Tobacco type: cigarettes Alcohol intake: current Drinks per week: 2 Alcohol use details: occasional beer Substance use: never Substance use type: does not use Living arrangements: with family Additional living arrangements comments: ethan Gender identity (if verbalized by the patient): Male Spiritual care concerns: No Anes - Eval Final PreProcedure Day of Procedure 10/20/22 07:03 Patient weight: overweight Heart: regular rate and rhythm Lungs: clear to auscultation Airway: Mallampati scale class II Neurological: alert and oriented Last oral intake: >/= 8 hours ASA classification: II Emergent: no Anesthetic plan: proceed Anesthesia type and monitoring: general GIVS and standard monitoring Results Review: All pre-operative results and documents have been reviewed as part of the pre- operative evaluation. Informed Consent: The patient's anesthetic plan and its attendant risks and benefits were discussed with the patient/family/POA. Questions were solicited and answers provided to the satisfaction of the patient/family/POA.
[2022-10-20 07:16] VITALS: BP 160/92; PULSE 79; RESP 16; TEMP 36.8; O2SAT 98
[2022-10-20] MEDS: LACTATED RINGERS 1,000 ML 150 ML IV CONT (07:17)
[2022-10-20 07:33] VITALS: BP 103/87; PULSE 77; RESP 20; O2SAT 97
[2022-10-20 07:43] VITALS: BP 112/84; PULSE 72; RESP 16; O2SAT 98
[2022-10-20 07:53] VITALS: BP 119/68; PULSE 67; RESP 18; O2SAT 94
--- NOTE | 2022-10-20 13:05 | WPDANESPN ---
Anes - Prog Note Post-Op Date/Time: 10/20/22 13:05 Cardiovascular status: normal Respiratory status: normal Airway patency: baseline Mental status: baseline Post-Op hydration status: normal Vital Signs: Last Vital Signs Temp 36.8 C 10/20/22 07:16 Pulse 67 10/20/22 07:53 Resp 18 10/20/22 07:53 BP 119/68 10/20/22 07:53 Pulse Ox 94 10/20/22 07:53 O2 Del Method Room Air 10/20/22 07:53 Pain Score (VAS): 0 I/O: Intake & Output 10/19/22 10/20/22 10/20/22 23:59 07:59 15:59 Intake Total 500 Balance 500 Post-procedural complaints: none Patient Feedback: Patient satisfied with anesthetic care. Other Findings: Patient vital signs back to baseline. Patient denies nausea and vomiting. Patient's pain under control. Patient OK for discharge.
== END 2022-10-20 08:10 | disposition home or self-care (01) ==
PROVIDERS: Visit Provider Internal Medicine Gastroenterology
PROC: 0DJ08ZZ Inspection of Upper Intestinal Tract, Via Natural or Artificial Opening Endoscopic (ICD-10-PCS; CPT 43235; principal; 2022-10-20 07:30)
DX: K22.2 Esophageal obstruction (principal); R13.19 Other dysphagia; K29.70 Gastritis, unspecified, without bleeding
CPT/HCPCS: 43249; 43239

== ENCOUNTER 2023-01-04 08:05 | Emergency (ER) | payer MEDICARE, SELFPAY ==
--- NOTE | ~2023-01-04 | XR_ITS ---
EXAMINATION: XR chest 2V 01/04/2023 08:37 INDICATION: Cough for one week PROCEDURE: PA and lateral views of the chest COMPARISON: 03/18/2017 FINDINGS: The lungs are clear. The cardiomediastinal silhouette is within normal limits. There are no pleural effusions. There is no pneumothorax suspected. IMPRESSION: 1: NO ACUTE CARDIOPULMONARY DISEASE. Reviewed, dictated and finalized at location B. RANCE VERIFICATION CLERK
[2023-01-04 08:14] VITALS: BP 145/69; PULSE 114; RESP 16; TEMP 36.7; O2SAT 94
--- NOTE | 2023-01-04 08:23 | ED.URI ---
HPI - URI/Sore Throat General Chief Complaint: Upper Respiratory Infection Stated Complaint: Cough,Sweating,Congestion Time Seen by Provider: 01/04/23 08:23 Source: patient Mode of arrival: ambulatory Limitations: no limitations History of Present Illness HPI Narrative: 77 Year old male presents with complaint complaint of night sweats for the past 2 weeks. Reports that he has had a for approximately 10 days. Over the last 3 days temperature 100.6 F. reports that he is coughing up greenish brownish bloody sputum. Denies chest pain shortness of breath. History of smoking, 1984. All systems reviewed and negative except as noted above. Related Data Home Medications Medication Instructions Recorded Confirmed amlodipine 5 mg-benazepril 10 mg 1 cap PO DAILY 07/04/19 01/04/23 capsule aspirin 81 mg tablet,delayed 81 mg PO DAILY 07/04/19 01/04/23 release (Adult Low Dose Aspirin) multivitamin with minerals-folic 1 mcg PO DAILY 07/04/19 01/04/23 acid 200 mcg chewable tablet (Adult Multivitamin Gummies) ascorbate calcium (vitamin C) 1 tablet PO DAILY 10/04/22 01/04/23 diazepam 5 mg tablet 5 mg PO HS 10/04/22 01/04/23 Allergies Allergy/AdvReac Type Severity Reaction Status Date / Time celecoxib AdvReac Severe Dyspnea / Verified 01/04/23 08:08 SOB Penicillins AdvReac Severe Dyspnea / Verified 01/04/23 08:08 SOB Review of Systems Review of Systems: CONSTITUTIONAL: reports fever, sweats. EYES: Denies visual changes, redness, or discharge. ENT: Denies rhinorrhea, congestion, sore throat, or otalgia. CARDIOVASCULAR: Denies chest pain, palpitations, or edema. RESPIRATORY: Reports cough . Denies dyspnea. GASTROINTESTINAL: Denies abdominal pain, nausea, vomiting, or diarrhea. GENITOURINARY: Denies dysuria or hematuria. SKIN: Denies rash or itching. MUSCULOSKELETAL: Denies back pain, joint pain, or myalgia. NEUROLOGIC: Denies headache, numbness, or weakness. PSYCHIATRIC: Denies anxiety or depression. All other systems reviewed are negative, except as documented in HPI. [facility] Past Medical History Medical History (Updated 01/04/23 @ 08:48 by Cielo Clark NP) Arthritis HTN (hypertension) Overweight Surgical History Surgical History History of ankle surgery History of lumbar fusion Social History Social History Smoking packs per day: 1 Smoking cigarettes per day: 20.0 Smoking status: Former smoker Tobacco type: cigarettes Alcohol intake: current Drinks per week: 2 Alcohol use details: occasional beer Substance use: never Substance use type: does not use Living arrangements: with family Additional living arrangements comments: ethna Gender identity (if verbalized by the patient): Male Spiritual care concerns: No Comments At time of signature, agree with nursing past medical, surgical, social and family history. There is no relevant family history pertinent to the presenting complaint. Exam Narrative: GENERAL: This is a well-nourished, well-developed patient, in no apparent distress. HEAD: normocephalic, atraumatic. EYES: PERRL. Sclera clear/white. Vision is grossly intact. EARS: External ears normal, auditory canals clear and without drainage, TMs normal without perforation. Hearing grossly intact. NOSE: External nose normal with clear nasal drainage, nares without redness, THROAT: Mucous membranes moist, posterior pharynx clear. NECK: Neck supple, non-tender without lymphadenopathy, masses or thyromegaly. CARDIOVASCULAR: Regular rate and rhythm without murmurs, gallops, or rubs. RESPIRATORY: rhonchi/ Coarse throughout all lung armendariz.Breath sounds equal bilaterally. No wheezes, rales, SKIN: warm, Dry, intact with no suspicious lesions or rash, good texture and turgor. NEURO: awake, alert, and oriented to person, place and time. The
== END 2023-01-04 08:55 | disposition home or self-care (01) ==
PROVIDERS: Emergency Provider Nurse Practitioner Family
DX: J40 Bronchitis, not specified as acute or chronic (principal); Z87.891 Personal history of nicotine dependence; I10 Essential (primary) hypertension; M19.90 Unspecified osteoarthritis, unspecified site; Z79.82 Long term (current) use of aspirin
CPT/HCPCS: 71046; 99213; G0463

== ENCOUNTER 2024-10-30 03:00 | Day surgery (SDC) | payer MEDICARE, SELFPAY ==
[2024-10-25 14:22] VITALS: BMI 27.3
[2024-10-30 11:48] VITALS: BP 142/97; PULSE 82; RESP 18; TEMP 36.1; O2SAT 96; BMI 25.9
[2024-10-30] MEDS: LACTATED RINGERS 1,000 ML 150 ML IV CONT (11:54)
--- NOTE | 2024-10-30 12:06 | WPDANESEPPF ---
Anes - Initial Pre Proc Eval Procedure: Operation Date: 10/30/24 13:00 Proposed Procedures p EGD & Diagnostic Colonoscopy - Tonny Lantigua MD Date/Time: 10/30/24 12:06 Surgeon: Tonny Lantigua MD Pre Op Diagnosis: Unspecified abdominal pain Patient Data Age: 78 Gender: M Height: 1.7 m Weight: 75.3 kg Last Vital Signs Temp 97 F L 10/30/24 11:48 Pulse 82 10/30/24 11:48 Resp 18 10/30/24 11:48 BP 142/97 H 10/30/24 11:48 Pulse Ox 96 10/30/24 11:48 O2 Del Method Room Air 10/30/24 11:48 Allergies Allergy/AdvReac Type Severity Reaction Status Date / Time celecoxib AdvReac Severe Dyspnea / Verified 10/30/24 11:47 SOB Penicillins AdvReac Severe Dyspnea / Verified 10/30/24 11:47 SOB Home Medications ?Medication ?Instructions ?Recorded ?Confirmed ?Type amlodipine 5 mg-benazepril 10 mg 1 cap PO DAILY 07/04/19 10/30/24 History capsule aspirin 81 mg tablet,delayed 81 mg PO DAILY 07/04/19 10/30/24 History release (Adult Low Dose Aspirin) multivitamin with minerals-folic 1 mcg PO DAILY 07/04/19 10/30/24 History acid 200 mcg chewable tablet (Adult Multivitamin Gummies) ascorbate calcium (vitamin C) 1 tablet PO DAILY 10/04/22 10/30/24 History diazepam 5 mg tablet 5 mg PO HS PRN sleep 10/04/22 10/25/24 History tadalafil 20 mg tablet 20 mg PO DAILY PRN sexual activity 09/16/24 10/25/24 History amitriptyline 25 mg tablet 25 mg PO QHS #30 tabs 10/25/24 10/30/24 Rx Patient hx anesthesia problems: none Family hx anesthesia problems: none Results Review: All pre-operative results and documents have been reviewed as part of the pre-operative evaluation. [facility] Past Medical History Medical History Constipation Nausea Abdominal pain Arthritis HTN (hypertension) Overweight Surgical History Surgical History History of lumbar fusion History of ankle surgery Social History Social History Smoking packs per day: 1 Smoking cigarettes per day: 20.0 Smoking status: Former smoker Tobacco type: cigarettes Alcohol intake: current Drinks per week: 2 Alcohol use details: occasional beer Substance use: never Substance use type: does not use Living arrangements: with family Additional living arrangements comments: ethan Gender identity (if verbalized by the patient): Male Spiritual care concerns: No Anes - Eval Final PreProcedure Day of Procedure 10/30/24 12:06 Patient weight: overweight Lungs: normal air movement Airway: Mallampati scale class II Neurological: alert and oriented Last oral intake: >/= 8 hours ASA classification: II Emergent: no Anesthetic plan: proceed Anesthesia type and monitoring: general GIVS and standard monitoring Results Review: All pre-operative results and documents have been reviewed as part of the pre-operative evaluation. HTN, ex smoker quit 1984. Pt w abd pain, overall good exercise tolerance, gardens, no cp or sob. Informed Consent: The patient's anesthetic plan and its attendant risks and benefits were discussed with the patient/family/POA. Questions were solicited and answers provided to the satisfaction of the patient/family/POA.
--- NOTE | 2024-10-30 12:54 | WPDHPUPDATE1 ---
History and Physical Update Update Date/Time: 10/30/24 12:54 History and Physical has been reviewed, including an updated exam of the patient. There are NO changes in the patient's condition. Risks, benefits, and alternatives have been discussed and questions answered. Patient agrees to proceed with procedure.
--- NOTE | 2024-10-30 13:06 | S_PTH ---
PATIENT: Mani Walton LOC: [facility]#:[id number] AGE/SX: 78/M ROOM: RE10/30/[address]: Tonny Lantigua MD : 1945 BED: DIS: 10/30/2024 SPEC #: [id number] RECD: 10/30/24 14:22 STATUS: SRINIVAS RESandra #: [id number] BOAZ: 10/30/24 13:[address]: Tonny Lantigua DEPT: [facility] RECD BY: Felicia Isabel Tissues: A - Gastric Biopsy B - Small Bowel Bx C - Colon Polypectomy Procedures: Hematoxylin and Eosin Stain Gross and Microscopic Level 4
--- NOTE | 2024-10-30 13:07 | SUR.OPER ---
EGD TIME: 0063-1986, COLONOSCOPY TIME [id number]
[2024-10-30 13:17] VITALS: BP 106/73; PULSE 73; RESP 21; O2SAT 97
[2024-10-30 13:27] VITALS: BP 103/72; PULSE 75; RESP 19; O2SAT 96
[2024-10-30 13:37] VITALS: BP 124/89; PULSE 74; RESP 21; O2SAT 100
== END 2024-10-30 13:52 | disposition home or self-care (01) ==
PROVIDERS: Visit Provider Internal Medicine Gastroenterology
PROC: 0DJ08ZZ Inspection of Upper Intestinal Tract, Via Natural or Artificial Opening Endoscopic (ICD-10-PCS; CPT 45378; principal; 2024-10-30 13:00)
DX: R10.32 Left lower quadrant pain (principal); D12.3 Benign neoplasm of transverse colon; K63.5 Polyp of colon; K64.8 Other hemorrhoids; R14.0 Abdominal distension (gaseous); K22.2 Esophageal obstruction; Z87.891 Personal history of nicotine dependence
CPT/HCPCS: 45385; 43249; 43239; 88305; C1726; J2704; J7120